=== PATIENT | male | born 1995 | race Caucasian/White ===

== ENCOUNTER 2017-02-04 16:30 | Inpatient (IN) | payer BC, OTHER ==
[~2017-02-04] VITALS: Ht 182.9 cm; Wt 59.0 kg
[2017-02-04 18:06] VITALS: BP 141/69
[2017-02-04] MEDS ORDERED: DULO30CA2 PO (18:18)
[2017-02-04] MEDS ORDERED: PANT40TA4 PO (18:18)
[2017-02-04] MEDS ORDERED: LORA1TAB PO (18:22)
[2017-02-04 18:25] LABS: BASOPHILS # (AUTO) 0.2 K/uL (0.0-8.0); BASOPHILS % (AUTO) 1.6 % (0.0-2.0); EOSINOPHILS # (AUTO) 0.2 K/uL (0.0-0.7); HEMATOCRIT 49.8 % (40-50); HEMOGLOBIN 16.3 G/DL (14.0-18.0); LYMPHOCYTES # (AUTO) 2.7 K/UL (0.8-4.8); LYMPHOCYTES % (AUTO) 28.2 % (20.5-74.5); MEAN CORPUSCULAR HGB CONC 33 g/dL (32.0-37.0); MEAN CORPUSCULAR VOLUME 88.8 FL (82.0-92.0); MONOCYTES # (AUTO) 0.8 K/UL (0.1-1.30); MONOCYTES % (AUTO) 8.1 % (0-11); NEUTROPHILS # (AUTO) 5.8 K/UL (1.8-8.9); NEUTROPHILS % (AUTO) 60.1 % (31.5-64.5); PLATELET COUNT (AUTO) 295 K/UL (150-450); RED BLOOD CELL COUNT(AUTO) 5.61 MIL/UL (4.7-6.1); WHITE BLOOD COUNT (AUTO) 9.7 K/UL (4.0-11.2)
[2017-02-04 18:28] LABS: ETHANOL < 3 MG/DL (0-0)
[2017-02-04 18:31] LABS: ALANINE AMINOTRANSFERASE 27 U/L (16-63); ALKALINE PHOSPHATASE 71 U/L (50-136); ASPARTATE AMINOTRANSFERASE 17 U/L (15-37); BILIRUBIN,TOTAL 0.5 mg/dL (0.2-1.0); CARBON DIOXIDE 31 mmol/L (21-32); CHLORIDE 101 mmol/L (98-107); CREATININE 1.1 mg/dL (0.6-1.3); GLUCOSE 103 mg/dL (74-106); POTASSIUM 3.3 mmol/L (3.5-5.1); TOTAL PROTEIN, SERUM 8.8 g/dL (6.4-8.2); UREA NITROGEN, BLOOD 10 mg/dL (7-18)
[2017-02-04 18:34] LABS: *AMPHETAMINE, URINE NEGATIVE (NEGATIVE); *BARBITURATE, URINE NEGATIVE (NEGATIVE); *CANNABINOID, URINE POSITIVE (NEGATIVE); *COCCAINE, URINE NEGATIVE (NEGATIVE); *OPIATE, URINE NEGATIVE (NEGATIVE); *PHENCYCLIDINE SCREEN,URINE NEGATIVE (NEGATIVE)
[2017-02-04 20:00] VITALS: BP 128/70
[2017-02-05] VITALS: BP 127/81
[2017-02-05 09:00] VITALS: BP 125/76
[2017-02-05 13:00] VITALS: BP 131/69
[2017-02-05 16:00] VITALS: BP 136/65
[2017-02-05 21:17] VITALS: BP 123/60
[2017-02-06 00:30] VITALS: BP 121/73
[2017-02-06 04:05] VITALS: BP 116/69
[2017-02-06 08:08] LABS: HEPATITIS B SURFACE AG Negative (Negative)
[2017-02-06 08:55] VITALS: BP 118/63
[2017-02-06 12:56] VITALS: BP 125/68
[2017-02-06 16:55] VITALS: BP 124/64
[2017-02-06 20:35] VITALS: BP 142/89
[2017-02-07 00:10] VITALS: BP 117/83
[2017-02-07 04:59] VITALS: BP 122/71
[2017-02-07 08:00] VITALS: BP 120/66
[2017-02-07 12:00] VITALS: BP 122/63
[2017-02-07 16:00] VITALS: BP 128/76
[2017-02-07 20:44] VITALS: BP 110/61
[2017-02-08] VITALS (7 sets, daily range): BP systolic 108–134; BP diastolic 61–82
[2017-02-09 08:00] VITALS: BP 142/68
[2017-02-09 12:00] VITALS: BP 116/68
[2017-02-09] MEDS ORDERED: CLON0.1T14 PO (14:51)
[2017-02-09] MEDS ORDERED: DICY20TA28 PO (14:51)
[2017-02-09] MEDS ORDERED: DOCU250C14 PO (14:51)
[2017-02-09] MEDS ORDERED: QUET25TA PO (14:51)
[2017-02-09] MEDS ORDERED: GABA-534 PO ×2 (14:51)
[2017-02-09] MEDS ORDERED: HYDR-3895 PO (14:51)
[2017-02-09] MEDS ORDERED: DIPH50CA37 PO (14:51)
[2017-02-09] MEDS ORDERED: BACL20TA PO (14:51)
[2017-02-09] MEDS ORDERED: IBUP-1955 PO (14:51)
[2017-02-09 16:00] VITALS: BP 137/74
[2017-02-09 20:12] VITALS: BP 129/85
[2017-02-10] VITALS (7 sets, daily range): BP systolic 125–138; BP diastolic 58–84
[2017-02-11 00:18] VITALS: BP 132/77
[2017-02-11 04:43] VITALS: BP 128/73
[2017-02-11 08:00] VITALS: BP 129/77
[2017-02-11 08:02] VITALS: BP 129/71
== END 2017-02-11 09:37 | disposition other institution (70) | DRG 895 ==
LOC: SRC 17:13
PROVIDERS: ADMIT Internal Medicine; ATTEND Internal Medicine
PROC: HZ2ZZZZ Detoxification Services for Substance Abuse Treatment (ICD-10-PCS; principal; 2017-02-04)
PROC: HZ41ZZZ Group Counseling for Substance Abuse Treatment, Behavioral (ICD-10-PCS; 2017-02-06)
PROC: HZ31ZZZ Individual Counseling for Substance Abuse Treatment, Behavioral (ICD-10-PCS; 2017-02-07)
DX: F13.230 Sedative, hypnotic or anxiolytic dependence with withdrawal, uncomplicated (principal); F33.2 Major depressive disorder, recurrent severe without psychotic features; I15.9 Secondary hypertension, unspecified; F17.210 Nicotine dependence, cigarettes, uncomplicated; F12.90 Cannabis use, unspecified, uncomplicated; K21.9 Gastro-esophageal reflux disease without esophagitis; Z79.899 Other long term (current) drug therapy; K59.03 Drug induced constipation; Z81.8 Family history of other mental and behavioral disorders; E87.6 Hypokalemia; K03.81 Cracked tooth; F10.10 Alcohol abuse, uncomplicated; Y90.9 Presence of alcohol in blood, level not specified; F41.9 Anxiety disorder, unspecified
CPT/HCPCS: 36415; 70030-TC; 80307; 80349; 83735; 85025; 86580; 86592; 86705; 86803; 87340; 87806; A4663; A9150; G0480